=== PATIENT | female | born 1995 | race Caucasian/White ===

== ENCOUNTER 2022-11-18 15:01 | Emergency (ER) | payer OTHER, SELFPAY ==
[2022-11-18 15:06] VITALS: BP 126/74; PULSE 74; RESP 16; TEMP 36.9; O2SAT 98; BMI 28.7
--- NOTE | 2022-11-18 15:25 | ECG_ITS ---
[facility] Test Date: 2022-11-18 Pat Name: SRINIVAS LION Department: Room: - Gender: Female Division [employer] Chief: : 1995 Requested By: [id number] Order Number: [id number] Reading MD: JOSE MONTGOMERY Measurements Intervals [place] Rate: 56 P: 54 [place]: 136 QRS: 96 QRSD: 86 T: 12 QT: 410 QTc: 402 Interpretive Statements 1100 Sinus rhythm 4068 Nonspecific [place] abnormality 7102 Moderate right axis deviation 9130 borderline ECG No previous ECG available for comparison Electronically Signed On 11-19-2022 7:06:09 EDT by JOSE MONTGOMERY
--- NOTE | 2022-11-18 15:27 | ED_ITS ---
Documented by User: NICOLE Anderson 11/18/22 16:53 HPI - Neck Pain/Injury General Chief Complaint: Neck Pain/Injury Stated Complaint: NECK PAIN Time Seen by Provider: 11/18/22 15:11 Source: patient Mode of arrival: walk-in Limitations: no limitations History of Present Illness HPI Narrative: patient is a 27-year-old female who presents to the emergency department for the evaluation of right-sided neck pain radiating into the right scapula and right chest for the last week. She denies fevers, chills, cough, hemoptysis. She is on control, she is not concerned for . She denies any swelling of the extremities, vomiting, diarrhea. No direct mechanism of injury or trauma to the neck. She states she does do light lifting with weights. She saw a chiropractor who did coughing for her neck and back without improvement. She reports pain is significantly worse with movement of the head at the neck but she has no pain with movement of the right arm. She states she has had occasional tingling of the fingers of the right hand. Related Data Previous Rx's Medication Instructions Recorded methocarbamol 750 mg tablet 750 mg PO TID PRN pain #20 tabs 11/18/22 methylprednisolone 4 mg tablets in See Rx Instructions .Route 11/18/22 a dose pack (Medrol (Scott)) .COMPLEX #21 ea naproxen sodium 550 mg tablet 550 mg PO BID PRN pain #10 tabs 11/18/22 Allergies Allergy/AdvReac Type Severity Reaction Status Date / Time No Known Drug Allergies Allergy Verified 11/18/22 15:09 Review of Systems ROS Constitutional Denies: fever or chills Ears, nose, mouth, and throat Reports: neck pain; Denies: throat pain Cardiovascular Reports: chest pain Respiratory Denies: shortness of breath or cough Gastrointestinal Denies: nausea or vomiting Musculoskeletal Reports: neck pain; Denies: back pain Integumentary/Breast Denies: rash Neurological Denies: headache Hematologic/Lymphatic Denies: easy bruising Allergic/Immunologic Denies: hives PFSH PFS Social History Smoking status: Never smoker Exam Narrative Exam Narrative: Gen.: Awake, alert, in no distress Head: Normocephalic, atraumatic ENT: Moist mucous membranes Neck: no bony point tenderness of the posterior C-spine or T-spine. Healing ecchymosis noted to the right paraspinal muscles of the cervical spine as well as to the scapula from chiropractic procedure. Limited range of motion to flexion, extension and lateral [id number] motion at the C-spine. Diffuse tenderness of the paraspinal muscles of the right cervical spine and right trapezius muscle. Respiratory: No respiratory distress, lungs clear bilaterally Cardio: Regular rate and rhythm Extremities: Moves extremities equally, no pain with movement of the right arm, 2+ right radial pulse. Normal coat finisher strength in the right hand. Psych: Normal mood and affect Neuro: No focal neuro deficit Skin: Warm, dry, intact Constitutional Vital Signs, click to edit/add: Last Vital Signs Temp 98.5 F 11/18/22 15:06 Pulse 74 11/18/22 15:06 Resp 16 11/18/22 15:06 BP 126/74 H 11/18/22 15:06 Pulse Ox 98 11/18/22 15:06 O2 Del Method Room Air 11/18/22 15:06 Course Vital Signs Vital signs: Vital Signs Temperature 98.5 F 11/18/22 15:06 Pulse Rate 74 11/18/22 15:06 Respiratory Rate 16 11/18/22 15:06 Blood Pressure 126/74 H 11/18/22 15:06 Pulse Oximetry 98 11/18/22 15:06 Oxygen Delivery Method Room Air 11/18/22 15:06 Temperature 98.5 F 11/18/22 15:06 Pulse Rate 74 11/18/22 15:06 Respiratory Rate 16 11/18/22 15:06 Blood Pressure 126/74 H 11/18/22 15:06 Pulse Oximetry 98 11/18/22 15:06 Oxygen Delivery Method Room Air 11/18/22 15:06 MDM - Neck Pain/Injury MDM Narrative Medical decision making narrative: patient was treated with Toradol in the emergency department, lab studies were ordered she is on control and we cannot use a PERC score. Labs, d-dimer are within normal limits and the patient was sent for x-rays of the cervical spine and chest. X-rays with no evidence of acute abnormality. exam and history are consistent with musculoskeletal pain and the patient will be started on muscle relaxants, NSAIDs, Medrol Dosepak. Rest, ice, gentle stretching. Follow-up with PCP and return to the Emergency Room if symptoms change or worsen. Medical Records Attestation: I reviewed the patient's medical records. Lab Data Attestation: I reviewed the patient's lab results. Labs: Lab Results 11/18/22 Range/Units 15:35 WBC 6.7 (4.0-11.0) 10^3/uL RBC 4.33 (4.20-5.40) 10^6/uL Hgb 14.0 (12.0-16.0) g/dL Hct 39.9 (36.0-48.0) % MCV 92.1 (81.0-99.0) fL MCH 32.3 (26.7-34.0) pg MCHC 35.1 (29.9-35.2) g/dL RDW 11.9 (11.0-15.0) % Plt Count 156 (150-450) 10^3/uL MPV 11.4 (9.5-13.5) fL Neut % (Auto) 55.4 (43.0-75.0) % Lymph % (Auto) 33.4 (20.5-60.0) % [place] % (Auto) 9.9 (1.7-12.0) % Eos % (Auto) 0.6 L (0.9-7.0) % Baso % (Auto) 0.4 (0.2-2.0) % Neut # (Auto) 3.7 (1.4-6.5) 10^3/uL Lymph # (Auto) 2.2 (1.2-3.8) 10^3/uL [place] # (Auto) 0.7 (0.3-0.8) 10^3/uL Eos # (Auto) 0.0 (0.0-0.7) 10^3/uL Baso # (Auto) 0.0 (0.0-0.1) 10^3/uL Abs Immat Gran (auto) 0.02 (0.00-0.03) 10^3/uL Imm/Tot Granulo (auto) 0.3 (0.0-0.5) % D-Dimer <0.19 (<=0.59) mg/L FEU Sodium 141 (136-145) mmol/L Potassium 3.4 L (3.5-5.1) mmol/L Chloride 103 (98-107) mmol/L Carbon Dioxide 27.7 (21.0-32.0) mmol/L Anion Gap 13.7 BUN 14.0 (7.0-18.0) mg/dL Creatinine 0.58 (0.55-1.02) mg/dL Est GFR ( Amer) >60 (>=60) Est GFR (Non-Af Amer) >60 (>=60) BUN/Creatinine Ratio 24.1 Glucose 93 (74-106) mg/dL Calcium 8.8 (8.5-10.1) mg/dL Imaging Data Chest x-ray: Attestation: I have reviewed the pertinent imaging results. Radiologist's impression: Procedure: XR chest 2V EXAM: XR chest 2V HISTORY: Chest pain . Past 2 weeks. COMPARISON: None. TECHNIQUE: Upright PA and lateral chest x-ray FINDINGS: The heart is not enlarged and the vasculature is not distended. No acute infiltrate, effusion or pneumothorax is identified. The osseous structures are grossly intact. IMPRESSION: No acute infiltrate or evidence of cardiac decompensation. Comparison with a previous study is recommended to verify stability of these findings. Electronically authenticated by: HOLDEN NEVAREZ Date: 11/18/2022 16:44 XR Cervical spine: Attestation: I have reviewed the pertinent imaging results. Radiologist's impression: Procedure: XR cervical spine 2-3V EXAM: XR cervical spine 2-3V HISTORY: Neck pain COMPARISON: None. TECHNIQUE: 3 view(s) of the cervical spine. FINDINGS: The bones are well mineralized. The spine is in good alignment. No significant degenerative changes are identified. No acute fracture. IMPRESSION: 1. No osseous abnormality of the cervical spine. Electronically authenticated by: SURINDER SULLIVAN Date: 11/18/2022 16:45 Discharge Plan Discharge Chief Complaint: Neck Pain/Injury Clinical Impression: Acute neck pain, Strain of neck muscle Patient Disposition: Home, Self-Care Time of Disposition Decision: 16:51 Condition: Good Prescriptions / Home Meds: New methylprednisolone [Medrol (Scott)] 4 mg tablets,dose pack See Rx Instructions .ROUTE .COMPLEX Qty: 21 0RF Rx Instructions: Taper as directed methocarbamol 750 mg tablet 750 mg PO TID PRN (Reason: pain) Qty: 20 0RF naproxen sodium 550 mg tablet 550 mg PO BID PRN (Reason: pain) Qty: 10 0RF Instructions: Cervical Strain (ED), Muscle Strain (ED), Acute Neck Pain (ED) Additional Instructions: Ice, gentle stretching Stand Alone Forms: Portal Instructions Referrals: Physician,Non-Staff, [Primary Care Provider] - 1 week Discharge Date/Time: 11/18/22 17:08 Documented by User: Augustus Macdonald MD 11/18/22 20:23 HPI - Neck Pain/Injury General Chief Complaint: Neck Pain/Injury Stated Complaint: NECK PAIN Time Seen by Provider: 11/18/22 15:11 Related Data Previous Rx's Medication Instructions Recorded methocarbamol 750 mg tablet 750 mg PO TID PRN pain #20 tabs 11/18/22 methylprednisolone 4 mg tablets in See Rx Instructions .Route 11/18/22 a dose pack (Medrol (Scott)) .COMPLEX #21 ea naproxen sodium 550 mg tablet 550 mg PO BID PRN pain #10 tabs 11/18/22 Allergies Allergy/AdvReac Type Severity Reaction Status Date / Time No Known Drug Allergies Allergy Verified 11/18/22 15:09 PFSH PFSH Social History Smoking status: Never smoker Exam Constitutional Vital Signs, click to edit/add: Last Vital Signs Temp 98.5 F 11/18/22 15:06 Pulse 74 11/18/22 15:06 Resp 16 11/18/22 15:06 BP 126/74 H 11/18/22 15:06 Pulse Ox 98 11/18/22 15:06 O2 Del Method Room Air 11/18/22 15:06 Course Vital Signs Vital signs: Vital Signs Temperature 98.5 F 11/18/22 15:06 Pulse Rate 74 11/18/22 15:06 Respiratory Rate 16 11/18/22 15:06 Blood Pressure 126/74 H 11/18/22 15:06 Pulse Oximetry 98 11/18/22 15:06 Oxygen Delivery Method Room Air 11/18/22 15:06 Temperature 98.5 F 11/18/22 15:06 Pulse Rate 74 11/18/22 15:06 Respiratory Rate 16 11/18/22 15:06 Blood Pressure 126/74 H 11/18/22 15:06 Pulse Oximetry 98 11/18/22 15:06 Oxygen Delivery Method Room Air 11/18/22 15:06 MDM - Neck Pain/Injury MDM Narrative Medical decision making narrative: patient was treated with Toradol in the emergency department, lab studies were ordered she is on control and we cannot use a PERC score. Labs, d-dimer are within normal limits and the patient was sent for x-rays of the cervical spine and chest. X-rays with no evidence of acute abnormality. exam and history are consistent with musculoskeletal pain and the patient will be started on muscle relaxants, NSAIDs, Medrol Dosepak. Rest, ice, gentle stretching. Follow-up with PCP and return to the Emergency Room if symptoms change or worsen. I, Dr Macdonald, have reviewed the above progress note and course of action in the ER; agree with the above. I have personally seen and evaluated this patient, gone over history and physical, and discussed disposition and treatment plan with the patient. Lab Data Labs: Lab Results 11/18/22 Range/Units 15:35 WBC 6.7 (4.0-11.0) 10^3/uL RBC 4.33 (4.20-5.40) 10^6/uL Hgb 14.0 (12.0-16.0) g/dL Hct 39.9 (36.0-48.0) % MCV 92.1 (81.0-99.0) fL MCH 32.3 (26.7-34.0) pg MCHC 35.1 (29.9-35.2) g/dL RDW 11.9 (11.0-15.0) % Plt Count 156 (150-450) 10^3/uL MPV 11.4 (9.5-13.5) fL Neut % (Auto) 55.4 (43.0-75.0) % Lymph % (Auto) 33.4 (20.5-60.0) % [place] % (Auto) 9.9 (1.7-12.0) % Eos % (Auto) 0.6 L (0.9-7.0) % Baso % (Auto) 0.4 (0.2-2.0) % Neut # (Auto) 3.7 (1.4-6.5) 10^3/uL Lymph # (Auto) 2.2 (1.2-3.8) 10^3/uL [place] # (Auto) 0.7 (0.3-0.8) 10^3/uL Eos # (Auto) 0.0 (0.0-0.7) 10^3/uL Baso # (Auto) 0.0 (0.0-0.1) 10^3/uL Abs Immat Gran (auto) 0.02 (0.00-0.03) 10^3/uL Imm/Tot Granulo (auto) 0.3 (0.0-0.5) % D-Dimer <0.19 (<=0.59) mg/L FEU Sodium 141 (136-145) mmol/L Potassium 3.4 L (3.5-5.1) mmol/L Chloride 103 (98-107) mmol/L Carbon Dioxide 27.7 (21.0-32.0) mmol/L Anion Gap 13.7 BUN 14.0 (7.0-18.0) mg/dL Creatinine 0.58 (0.55-1.02) mg/dL Est GFR ( Amer) >60 (>=60) Est GFR (Non-Af Amer) >60 (>=60) BUN/Creatinine Ratio 24.1 Glucose 93 (74-106) mg/dL Calcium 8.8 (8.5-10.1) mg/dL Discharge Plan Discharge Chief Complaint: Neck Pain/Injury Clinical Impression: Acute neck pain, Strain of neck muscle Patient Disposition: Home, Self-Care Time of Disposition Decision: 16:51 Condition: Good Prescriptions / Home Meds: New methylprednisolone [Medrol (Scott)] 4 mg tablets,dose pack See Rx Instructions .ROUTE .COMPLEX Qty: 21 0RF Rx Instructions: Taper as directed methocarbamol 750 mg tablet 750 mg PO TID PRN (Reason: pain) Qty: 20 0RF naproxen sodium 550 mg tablet 550 mg PO BID PRN (Reason: pain) Qty: 10 0RF Instructions: Cervical Strain (ED), Muscle Strain (ED), Acute Neck Pain (ED) Additional Instructions: Ice, gentle stretching Stand Alone Forms: Portal Instructions Referrals: Physician,Non-Staff, MD [Primary Care Provider] - 1 week Discharge Date/Time: 11/18/22 17:08
[2022-11-18] MEDS: KETOROLAC TROMETHAMINE 60 MG/2 ML VIAL IM (15:44)
[2022-11-18 15:52] LABS: Basophils Percent Auto 0.4 % (0.2-2.0); Eosinophils Percent Auto 0.6 % (0.9-7.0); Hematocrit 39.9 % (36.0-48.0); Immature Granulocytes Abs Auto 0.02 10^3/uL (0.00-0.03); Immature Granulocytes Pct Auto 0.3 % (0.0-0.5); Lymphocytes Absolute Auto 2.2 10^3/uL (1.2-3.8); Lymphocytes Percent Auto 33.4 % (20.5-60.0); Mean Corpuscular HGB Conc 35.1 g/dL (29.9-35.2); Mean Corpuscular Hemoglobin 32.3 pg (26.7-34.0); Mean Corpuscular Volume 92.1 fL (81.0-99.0); Mean Platelet Volume 11.4 fL (9.5-13.5); Monocytes Absolute Auto 0.7 10^3/uL (0.3-0.8); Monocytes Percent Auto 9.9 % (1.7-12.0); Neutrophils Absolute Auto 3.7 10^3/uL (1.4-6.5); Neutrophils Percent Auto 55.4 % (43.0-75.0); Platelet Count 156 10^3/uL (150-450); Red Blood Count 4.33 10^6/uL (4.20-5.40); Red Cell Distribution Width 11.9 % (11.0-15.0); White Blood Count 6.7 10^3/uL (4.0-11.0)
[2022-11-18 15:58] LABS: Anion Gap 13.7; BUN Creatinine Ratio 24.1; Calcium 8.8 mg/dL (8.5-10.1); Carbon Dioxide 27.7 mmol/L (21.0-32.0); Chloride 103 mmol/L (98-107); Estimated GFR (African America >60 (>=60); Estimated GFR (Non-African Ame >60 (>=60); Glucose 93 mg/dL (74-106); Potassium 3.4 mmol/L (3.5-5.1); Sodium 141 mmol/L (136-145)
[2022-11-18 16:16] LABS: D Dimer <0.19 mg/L FEU (<=0.59)
--- NOTE | 2022-11-18 16:18 | XR_ITS ---
The [address] [address] Patient Name: SRINIVAS LION MRN: [id number] date: 1995 Sex: F Assigned Patient Location: ER Current Patient Location: ER Accession/Order Number: [id number] Exam Date: 11/18/2022 16:24 Report Date: 11/18/2022 16:45 At the request of: ETIENNE CEBALLOS Procedure: XR cervical spine 2-3V EXAM: XR cervical spine 2-3V HISTORY: Neck pain COMPARISON: None. TECHNIQUE: 3 view(s) of the cervical spine. FINDINGS: The bones are well mineralized. The spine is in good alignment. No significant degenerative changes are identified. No acute fracture. XR/XR cervical spine 2-3V IMPRESSION: 1. No osseous abnormality of the cervical spine. Electronically authenticated by: SURINDER SULLIVAN Date: 11/18/2022 16:45
--- NOTE | 2022-11-18 16:18 | XR_ITS ---
The [address] [address] Patient Name: SRINIVAS LION MRN: [id number] date: 1995 Sex: F Assigned Patient Location: ER Current Patient Location: ER Accession/Order Number: [id number] Exam Date: 11/18/2022 16:24 Report Date: 11/18/2022 16:44 At the request of: ETIENNE CEBALLOS Procedure: XR chest 2V EXAM: XR chest 2V HISTORY: Chest pain . Past 2 weeks. COMPARISON: None. TECHNIQUE: Upright PA and lateral chest x-ray FINDINGS: The heart is not enlarged and the vasculature is not distended. No acute infiltrate, effusion or pneumothorax is identified. The osseous structures are grossly intact. XR/XR chest 2V IMPRESSION: No acute infiltrate or evidence of cardiac decompensation. Comparison with a previous study is recommended to verify stability of these findings. Electronically authenticated by: HOLDEN NEVAREZ Date: 11/18/2022 16:44
== END 2022-11-18 17:08 | disposition home or self-care (01) ==
PROVIDERS: Physician Assistant; Emergency Provider Emergency Medicine
DX: S16.1XXA Strain of muscle, fascia and tendon at neck level, initial encounter (principal); M54.2 Cervicalgia; Z79.3 Long term (current) use of hormonal contraceptives
CPT/HCPCS: 36415; 71046; 72040; 80048; 85025; 85378; 93005; 96372; 99285